=== PATIENT | female | born 1990 | race African-American/Black ===

== ENCOUNTER 2020-09-14 20:53 | Emergency (ER) | payer SELFPAY ==
[2020-09-14 21:00] VITALS: Wt 75.5 kg
[2020-09-14 21:35] LABS: BASOPHILS 0.2 % (0-2); EOSINOPHILS 0 % (0-7); HEMATOCRIT 41.8 % (36.0-48.0); HEMOGLOBIN 14.1 g/dL (12-16); IMMATURE GRANULOCYTES 0.2 % (0-5); LYMPHOCYTE ABS# 0.89 10x3/uL (1.18-3.74); LYMPHOCYTES 8.2 % (15-50); MCH 31.8 pg (26.0-34.0); MCHC 33.7 g/dL (31.0-37.0); MCV 94.4 fL (80.0-100.0); MEAN PLATELET VOLUME 8.6 fL (7.4-10.4); MONOCYTES 2.6 % (2-11); NEUTROPHIL ABS# 9.65 10x3/uL (1.56-6.13); NEUTROPHILS 88.8 % (40-80); PLATELET COUNT 357 10x3/uL (130-400); RBC 4.43 10x6/uL (4.00-5.40); RDW 13.3 % (11.5-14.5); WBC 10.9 10x3/uL (4.8-10.8)
[2020-09-14 21:43] LABS: CALC OSMOLALITY 274 mosm/kg (275-300); CALCIUM 9.4 mg/dL (8.5-10.1); CARBON DIOXIDE 24.7 mmol/L (21.0-32.0); CHLORIDE - SERUM 101 mmol/L (98-107); GLUCOSE 106 mg/dL (74-106); POTASSIUM - SERUM 3.8 mmol/L (3.5-5.1); SODIUM 138 mmol/L (136-145); UREA NITROGEN 9 mg/dL (7-18); eGFR NON AFRICAN AMERICAN 69 mL/min (90-120)
[2020-09-14 21:52] LABS: ALBUMIN 4.2 g/dL (3.4-5.0); ALKALINE PHOSPHATASE 74 U/L (30-120); ALT (SGPT) 14 U/L (10-68); AMYLASE - SERUM 81 U/L (25-115); BILIRUBIN - TOTAL 0.76 mg/dL (0.2-1.3); LIPASE 54 U/L (73-393); PROTEIN - SERUM 8.5 g/dL (6.4-8.2)
[2020-09-14 21:54] LABS: TROPONIN-I < 0.017 ng/mL (0.000-0.060)
[2020-09-14 21:55] LABS: BILIRUBIN NEGATIVE (NEGATIVE); KETONE MODERATE mg/dL (NEGATIVE); NITRITE NEGATIVE (NEGATIVE); UROBILINOGEN NORMAL mg/dL (< 2)
[2020-09-14 21:56] LABS: BACTERIA MANY HPF (NONE SEEN); SQUAMOUS EPITHELIAL 0-5 HPF (0-4); WHITE CELLS - URINE OCC HPF (0-4)
[2020-09-14 22:01] LABS: HCG URINE NEGATIVE (NEGATIVE)
[2020-09-15] MEDS ORDERED: ZOFRAN ODT4 MG/UDTAB PO (00:01)
[2020-09-15] MEDS ORDERED: TYLENOL #4 W/CO1 TAB PO (00:01)
[2020-09-15 00:25] VITALS: BP 117/64
== END 2020-09-15 00:21 | disposition home or self-care (01) ==
LOC: D.ER 20:53
PROVIDERS: Family Medicine
DX: K52.9 Noninfective gastroenteritis and colitis, unspecified (principal); R10.9 Unspecified abdominal pain; R11.2 Nausea with vomiting, unspecified